=== PATIENT | female | born 1995 | race Caucasian/White ===

== ENCOUNTER 2021-10-12 20:47 | Emergency (ER) | payer MEDICAID ==
[~2021-10-12] VITALS: Ht 154.9 cm; Wt 74.8 kg
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
[2021-10-12] MEDS ORDERED: NAPR-1009 PO (23:33)
--- NOTE | 2021-10-13 02:43 | NUR ---
Patient discharged to home in stable condition. Written and verbal after care instructions given. Patient verbalizes understanding of instruction. PT ambulatory with a steady gait
[2021-10-13 03:03] VITALS: BP 132/78
== END 2021-10-13 03:03 | disposition home or self-care (01) ==
LOC: ER 20:51
DX: S40.211A Abrasion of right shoulder, initial encounter (principal); M25.521 Pain in right elbow; Z79.1 Long term (current) use of non-steroidal anti-inflammatories (NSAID); Z60.2 Problems related to living alone; V89.2XXA Person injured in unspecified motor-vehicle accident, traffic, initial encounter; Y93.89 Activity, other specified; Y92.89 Other specified places as the place of occurrence of the external cause; Y99.8 Other external cause status
CPT/HCPCS: 71045-TC; 73030-TC; 73080-TC